=== PATIENT | male | born 1980 | race Caucasian/White ===

== ENCOUNTER 2021-02-19 11:32 | Emergency (ER) | payer OTHER, BC ==
[~2021-02-19] VITALS: Ht 172.7 cm; Wt 81.8 kg
[2021-02-19 11:36] VITALS: BP 138/103
[2021-02-19] MEDS ORDERED: acetaminophen 325mg tablet PO ONE (11:55)
[2021-02-19] MEDS ORDERED: ketorolac trometh inj. 60 MG/2 ML VIAL IM ONE (11:55)
== END 2021-02-19 12:24 | disposition home or self-care (01) ==
LOC: EEVIPCON 11:32 → ER 11:32
DX: M54.2 Cervicalgia (principal); V87.7XXA Person injured in collision between other specified motor vehicles (traffic), initial encounter; Y93.89 Activity, other specified; Y92.89 Other specified places as the place of occurrence of the external cause; Y99.8 Other external cause status
CPT/HCPCS: 96372; 99283; J1885

== ENCOUNTER 2021-09-08 18:03 | Emergency (ER) | payer BC, OTHER ==
[~2021-09-08] VITALS: Ht 172.7 cm; Wt 79.5 kg
[2021-09-08] MEDS ORDERED: ondansetron/PF 4mg/2ml inj IV ONE (19:10)
[2021-09-08] MEDS ORDERED: normal saline 1000ml 1,000 ML IV ONE (19:10)
[2021-09-08] MEDS ORDERED: ONDA4TAB12 PO (19:36)
[2021-09-08 20:29] VITALS: BP 128/86
== END 2021-09-08 20:30 | disposition home or self-care (01) ==
LOC: ER 18:04 → EEVIPCON 18:04 → ER 20:30
DX: B34.9 Viral infection, unspecified (principal); Z79.899 Other long term (current) drug therapy
CPT/HCPCS: 96374; 99283; J2405; J7030

== ENCOUNTER 2025-03-27 22:02 | Emergency (ER) | payer BC, MEDICAID ==
[~2025-03-27] VITALS: Ht 172.7 cm; Wt 79.5 kg
[~2025-03-27 22:02] MED LIST: ONDA-243 PO
--- NOTE | 2025-03-27 22:26 | Physician Documentation ---
History of Present Illness ~ Chief Complaint: Diabetic Complication Stated Complaint: DIABETIC COMPLICATIONS Time Seen by MD: 22:07 HPI Patient presents to the emergency room with chief complaint of diabetic complications. A proximally one year ago he reports taking a random blood sugar which was extremely high. Since that time he has been asking around to get a primary care to manage diabetes however he has had no luck. He endorses symptoms of stocking glove distribution of neuropathy as well as blurred vision. He notes significant urination that has well as weight loss. Significant family history of diabetes. No fevers. He endorses low energy and generally not feeling well. He also had a strange rash around his eyes that lasted a proximally 1-2 months that has since resolved but no known cause for this. Medication Reconciliation Allergies: Coded Allergies: No Known Allergies (Unverified , 03/27/25) Scheduled ONDANSETRON ODT 4mg tablet (Ondansetron Odt), 1 TABLET PO Q6H Past Medical History Past Medical History: No Pertinent History Past Surgical History: noncontributory Alcohol Use: None Drug Use: none Lives In: Home Occupation: employed Review of Systems ROS All review of systems negative except as per HPI Physical Exam Vital Signs: Temperature: 96.3, Source: Temporal, Heart Rate: 85, Respiratory Rate: 15, Pulse Oximetry: 98, Weight: 79.550 Physical Exam General: Patient is awake, alert, oriented x4 in no acute distress Head: Normocephalic and atraumatic. Eyes: Conjunctival normal. EOMI. PERRL. ENT: Mucous membranes moist. Neck: Supple, trachea is midline. Chest: Clear to auscultation bilaterally without rales, rhonchi, or wheezes. There is no accessory muscle use or retractions. Cardiac: RRR without murmurs, gallops, or rubs. Abd: Soft, nondistended, nontender, with normoactive bowel sounds. No guarding, rebound, or rigidity. Extremities: Normal strength. Normal range of motion. No deformities or edema. Progress Results/Orders Results/Orders Completed Orders - MIKE ACUNA MD CMP (03/27/25 22:08) Cbc/Diff (03/27/25 22:08) Hgb A1c (03/27/25 22:07) Procalcitonin (03/27/25 22:09) Ua W/Microscopic, Cult If Ind (03/28/25 00:30) Normal Saline 1000ml (0.9% Sodium Chlori (03/28/25 02:45) Insulin Regular, Human (Humulin R 10 Uni (03/28/25 02:45) Insulin Regular, Human (Humulin R 10 Uni (03/28/25 04:35) Medications Received in ER Medications (Trade) Dose Ordered Sig/Dank Route PRN Reason Start Time Stop Time Status Last Admin Dose Admin Sodium Chloride 1,000 ml @ 1,000 mls/hr ONCE ONCE IV 03/28/25 02:45 03/28/25 03:44 DC 03/28/25 03:43 1,000 MLS/HR (HumuLIN R 10 units per 0.1 ML syringe) 5 units ONCE ONCE IV 03/28/25 02:45 03/28/25 02:46 DC 03/28/25 03:48 5 UNITS (HumuLIN R 10 units per 0.1 ML syringe) 3 units ONCE ONCE IV 03/28/25 04:35 03/28/25 04:36 DC 03/28/25 04:38 3 UNITS Vital Signs 03/27/25 22:04 Temp 96.3 Pulse 85 Resp 15 Pulse Ox 98 Laboratory Tests Test 03/27/25 22:27 03/28/25 00:30 03/28/25 04:15 White Blood Count 6.3 Red Blood Count 5.05 Hemoglobin 15.6 Hematocrit 44.8 Mean Corpuscular Volume 88.7 Mean Corpuscular Hemoglobin 30.8 Mean Corpuscular Hemoglobin Concent 34.7 Red Cell Distribution Width 14.1 Platelet Count 252 Mean Platelet Volume 9.7 Neutrophils (%) (Auto) 59.7 Lymphocytes (%) (Auto) 27.6 Monocytes (%) (Auto) 7.2 Eosinophils (%) (Auto) 4.6 Basophils (%) (Auto) 0.9 Neutrophils # (Auto) 3.7 Lymphocytes # (Auto) 1.7 Monocytes # (Auto) 0.4 Eosinophils # (Auto) 0.3 Basophils # (Auto) 0.1 CBC Comment Sodium Level 133 L Potassium Level 4.7 Chloride Level 95 L Carbon Dioxide Level 29.8 Anion Gap 8 Blood Urea Nitrogen 22 H Creatinine 1.26 H Estimated GFR/1.73 m2 62 BUN/Creatinine Ratio 17.5 Glucose Level 519 *H Hemoglobin A1c > 12.0 H Calcium Level 8.6 Total Bilirubin 0.4 Aspartate Amino Transf (AST/SGOT) 10 Alanine Aminotransferase (ALT/SGPT) 23 Alkaline Phosphatase 110 Total Protein 7.3 Albumin 3.9 Globulin 3.4 Albumin/Globulin Ratio 1.1 Procalcitonin < 0.05 Chemistry Comments Urine Specimen Description Cln catch midstream Urine Color Yellow Urine Clarity Clear Urine pH 5.5 Urine Specific [place] 1.010 Urine Protein Negative Urine Glucose (UA) >=1000 H Urine Ketones Trace H Urine Occult Blood Negative Urine Nitrite Negative Urine Bilirubin Negative Urine Urobilinogen 0.2 Urine Leukocyte Esterase Negative Urine RBC 0-2 Urine WBC 0-4 Urine Squamous Epithelial Cells Few Urine Amorphous Urates 1+ Urine Bacteria None seen Urine Mucus None seen Urine Culture Indicated Not ind Volume Urine Centrifuged 10 ml Urine Comment Glucometer 287 H Medical Decision Making Additional information obtaine: N/A Findings Patient presents to the emergency room with chief complaint of hyperglycemia. Patient has been experiencing similar hyperglycemia over the past year. He does not have a primary care provider. He has a attempted to get one that has not been successful. He states that has that has moderate knee tries to limit carbs. He states he had tried to work out however his energy is very low and he is losing weight and he is concerned about this. That has habitus that has not suggest that has lilian type 2 diabetes however given his significant hyperglycemia over the past year that it is unlikely that he has type 1. Patient's fatigue, facial rash, DM suggest there is a more cryptic process occuring and the possibility of endocine disregulation as well as cancer concidered as well as autoimmune. This requires significant follow up we have discussed multiple modalities to try and expedite establishment with primary care and further investigation including consideration for admission that has well as referrals to colleagues. Offered admission however patient is not able to be admitted this time. He acknowledges the need to follow up with primary care and we will give him small course of metformin he would get him started in his he is unable to follow up with primary care I will repeat his labs upon when ex shift with him to check his liver and kidney function. I did discuss with him the GI upset associated with metformin into titrate if needed. I will give him some Zofran that has well. Differential Dx:Considerations: Include: Appendicitis, Bowel obstruction, Cholecysitis, Dehydration, Diabetes, Diabetic coma, DKA, Electrolyte abnormality, Encephalopathy, Gastritis, Hepatitis, Hyperglycemia, Hyperosmolar state, Hypoglycemia, Pancreatitis, Pyelonephritis, UTI, Other Departure Disposition: HOME / SELF CARE / HOMELESS Impression: Primary Impression: Uncontrolled diabetes mellitus Condition: Fair Discharge Instructions: Glucose Monitoring Additional Instructions: Begin a glucose log. Take your sugars occasionally throughout the day to establish a general trend of what your sugars do upon wakening as well as before and after each meal and before bedtime. This will help your doctor establish what type of medication and when you should take it. Continue to work to establish primary care as discussed. Follow up as soon as possible for repeat labs to monitor your bodies affect with metformin. Referrals: NO PRIMARY CARE PROVIDER (PCP) Prescriptions ONDANSETRON ODT 4mg tablet (ONDANSETRON ODT) 4 Mg Tab.rapdis 1 TAB PO Q6H PRN PRN for nausea/vomiting, #30 TAB 0 Refills Prov: MIKE ACUNA MD 03/28/25 Metformin HCl (Metformin HCl) 500 Mg Tablet 1 TAB PO Q12H, #30 TAB Prov: MIKE ACUNA MD 03/28/25 Signature Scribe Signature: No scribe Attestation: The note accurately reflects work and decisions made by me.Mike Acuna MD 03/28/25 05:11 MIKE ACUNA MD Mar 27, 2025 22:26
[2025-03-27 22:41] LABS: MEAN PLATELET VOLUME 9.7 FL (7.4-10.4); RED CELL DISTRIBUTION WIDTH 14.1 % (11.5-14.5)
[2025-03-27 23:12] LABS: CREATININE 1.26 MG/DL (0.60-1.10); TOTAL CARBON DIOXIDE 29.8 MMOL/L (24-32); eCRCL 72 ML/MIN; eGFR 62 ML/MIN
[2025-03-28 00:57] LABS: LEUKOCYTE ESTERASE ,URINE NEGATIVE (Neg); NITRITES, URINE NEGATIVE (Neg); OCCULT BLOOD,URINE NEGATIVE (Neg)
[2025-03-28 01:28] LABS: UA COLLECTION TYPE CLN CATCH MIDSTREAM
[2025-03-28 01:29] LABS: MUCUS STRANDS NONE SEEN /LPF (Neg); SQUAMOUS EPITHELIAL CELL,UR FEW /LPF (FEW)
[2025-03-28 01:30] LABS: AMORPHOUS URATES 1+
[2025-03-28] MEDS: normal saline 1000ml 1,000 ML IV ONE (03:43)
[2025-03-28] MEDS: insulin regular, human 10 units/0.1 ml syringe IV ONE ×2 (03:48→04:38)
[2025-03-28] MEDS ORDERED: METF-1203 PO (05:09)
[2025-03-28] MEDS ORDERED: ONDA-243 PO (05:09)
[2025-03-28 05:54] VITALS: PULSE 88; RESP 16; TEMP 96.3; O2SAT 99
[2025-03-28 06:32] LABS: LACTATE DEHYDROGENASE 142 U/L (85-227)
== END 2025-03-28 05:59 | disposition home or self-care (01) ==
LOC: ER 22:03
DX: E11.65 Type 2 diabetes mellitus with hyperglycemia (principal)
CPT/HCPCS: 36415; 80053; 81001; 82550; 82948; 83036; 83615; 84145; 84681; 85025; 96361; 96374; 96376; 99284; J1815; J7030